=== PATIENT | female | born 1980 | race Two or more races ===

== ENCOUNTER 2023-06-24 15:17 | Outpatient (AMB) | payer OTHER, SELFPAY ==
--- NOTE | 2023-06-24 15:21 | MHC.OFFVIS ---
Intake Vital Signs 06/24/23 15:25 Height 5 ft 5 in Weight 177 lb BMI 29.5 BP 159/96 H Blood Pressure Location Rt brachial Position Sitting Pulse 114 H Intake Visit Reasons: ? keloid formation from tummy tuck Intake Note: This patient was self-referred for an assessment for question of keloid formation status post abdominoplasty. Patient c/o; reports ? keloid, reports tummy tuck was done in [facility] February. Leasing Professional Required: No Accompanied by: Self / Same As Patient Allergies No Known Allergies Allergy (Verified 06/24/23 15:25) Medication List - Last Reconciled 06/24/23 by Alonzo Correia MD cyclobenzaprine 10 mg PO TID PRN 30 days ibuprofen (Advil) 200 mg PO Q6H PRN levothyroxine mcg PO naproxen 500 mg PO BID PRN sumatriptan succinate mg PO topiramate 50 mg PO BID HPI ? keloid formation from tummy tuck HPI Details 42-year-old female referred for check of the abdominoplasty scar. She says that she had abdominoplasty in [place], [place] last February,. She says she did well postoperatively. She had a postop visit with her surgeon after 90 days she pointed out that she feels that the entire excision appears lumpy. She says she did not really have a chance to see her surgeon during that visit. She says that she feels the lumps mostly on the left side of the incision. She denies any drainage or swelling or redness. [facility] Surgical History (Updated 06/24/23 @ 15:44 by Alonzo Correia MD) Status post abdominoplasty Hx of cholecystectomy (~2006) History of tubal ligation (~2000) History of abdominoplasty (~03/15/23) Social History Alcohol intake: never Patient Tobacco Use Status: Never used Tobacco Review of Systems Const Denies chills and Denies fever(s) Card Denies chest pain, Denies dyspnea and Denies dyspnea on exertion Resp Denies cough, Denies dyspnea and Denies dyspnea on exertion GI Denies hematochezia and Denies change in bowel habits Denies hematuria Musc Denies back pain and Denies limited range of motion Neuro Denies focal weakness and Denies convulsions Psych Denies depression and Denies mood swings Physical Exam Const General: comfortable and no acute distress Orientation/consciousness: patient oriented x3 Neck Neck: Yes no lymphadenopathy Resp Auscultation: clear to auscultation bilaterally Cardio Rhythm: regular rhythm GI Other: Long transverse incision on the lower abdomen is well healed, subcutaneous layer feels ?lumpy? along this, mostly on the left side, no redness, no open wound, no tenderness Palpation (GI): Soft to palpation, nontender and no guarding Neuro General: patient oriented x3 Assessment & Plan Assessment & Plan (1) Status post abdominoplasty: Code(s): Z98.890 - Other specified postprocedural states Plan: She had undergone abdominoplasty in [place], [place] last February,. She came to the office to have the entire incision checked as she says that these feels ?lumpy?. The incision is well healed. There is no evidence of any infection or discharge. What she feels appears to be cicatrization in the subcutaneous layer. I explained to her that this is not an infection. I told her that she should allow the entire incision to remodel which may take at least 6 months. I explained to her that she does not require any urgent intervention. I did recommend to her to have the scar checked again within 6 months postop. Otherwise she is welcome to come to the office to have this evaluated as well. She is comfortable with the plan as above. Coding Level of Care Code New Pt Level 3 (12989) Diagnoses Status post abdominoplasty Z98.890
[2023-06-24 15:25] VITALS: BP 159/96; PULSE 114; BMI 29.5
== END 2023-06-24 15:53 | disposition home or self-care (01) ==
PROVIDERS: Visit Provider Surgery
DX: Z98.890 Other specified postprocedural states (principal)
CPT/HCPCS: 99203

== ENCOUNTER → 2023-06-24 15:17 | Outpatient (BNVA) | payer OTHER, SELFPAY | PROVIDERS: Visit Provider Surgery ==

== ENCOUNTER 2023-06-27 12:59 | Emergency (ER) | payer OTHER, SELFPAY | END 2023-06-27 14:45 | disposition left against medical advice (07) | PROVIDERS: Emergency Provider Emergency Medicine; PCP Family Medicine | DX: R51.9 Headache, unspecified (principal); I10 Essential (primary) hypertension; Z53.21 Procedure and treatment not carried out due to patient leaving prior to being seen by health care provider ==

== ENCOUNTER 2023-12-02 09:14 | Outpatient (AMB) | payer OTHER, SELFPAY ==
[2023-12-02 09:25] VITALS: BP 163/97; PULSE 97; BMI 29.1
--- NOTE | 2023-12-02 09:25 | A.OFFVIS_ITS ---
Vital Signs 12/02/23 09:25 Height 5 ft 5 in Weight 175 lb BMI 29.1 BP 163/97 H Blood Pressure Location Rt brachial Position Sitting Pulse 97 Intake Visit Reasons: New keloid of abdomen Intake Note: Patient known to Dr. Correia. Requested another surgeon as appointment kept getting rescheduled. She is here today with new concern of Keloid on abd. Keloid noticed 3m after abdominoplasty February of 2023. Patient c/o: pain that started on keloid 1.5m. Developing little keloid nest to it. Spring Bender Required: No Accompanied by: Self / Same As Patient Allergies No Known Allergies Allergy (Verified 12/02/23 09:27) HPI Comments Details: Patient is status post abdominal plasty approximate months ago. She presents with an enlarging incisional soft mass in the left lower abdomen. She was evaluated by another surgeon and now presents here for 2nd opinion. She would like to have this excised because it is becoming more symptomatic. She denies any GI issues or complaints. Chart was reviewed patient evaluate; patient has never had before [facility] Surgical History Status post abdominoplasty Hx of cholecystectomy (~2006) History of tubal ligation (~2000) History of abdominoplasty (~03/15/23) Social History Alcohol intake: never Patient Tobacco Use Status: Never used Tobacco Physical Exam Vital Signs: Last Vital Signs Pulse 97 12/02/23 09:25 BP 163/97 H 12/02/23 09:25 BMI result Body Mass Index 29.1 Chest Other: Chest breath sounds bilaterally, HS 1 in 2 GI Other: Patient was examined both supine and standing with Valsalva. She abdominal plasty scar. Abdomen otherwise soft and benign, modestly corpulent. Patient has a proximally 3 x 2 cm deeply situated incisional mass just to the left of midline. No hernias appreciated in the incision or in the groins. Assessment & Plan Assessment & Plan (1) Abdominal wall mass: Code(s): R22.2 - Localized swelling, mass and lump, trunk Category: Surgical Plan I discussed with the patient therapeutic options which are to continue conservative therapy/observation or for excision. She would like to proceed with the bladder. She feels that this is becoming more symptomatic and enlarging and would like to have it removed. Risks, benefits, alternatives of the wide local excision of abdominal wall mass were reviewed with the patient and included but not limited to bleeding, infection, recurrence, numbness, pain, scarring the patient wishes to proceed. All questions answered. Arrangements were made for this. Coding Level of Care Code New Pt Level 5 (19107) Diagnoses Abdominal wall mass R22.2
== END 2023-12-02 09:38 | disposition home or self-care (01) ==
PROVIDERS: PCP Family Medicine; Visit Provider Surgery
DX: R22.2 Localized swelling, mass and lump, trunk (principal)
CPT/HCPCS: 99204

== ENCOUNTER → 2023-12-02 09:14 | Outpatient (BNVA) | payer OTHER, SELFPAY | PROVIDERS: PCP Family Medicine; Visit Provider Surgery ==

== ENCOUNTER 2023-12-26 12:03 | Day surgery (SDC) | payer OTHER, SELFPAY ==
[2023-12-24 10:34] VITALS: BMI 29.1
--- NOTE | 2023-12-25 11:15 | MHC.SHP ---
Pre-Procedural Eval Section A - 24 Hr Update-Section A only Date of Service: 12/25/23 The patient is an INPATIENT: No Changes since office visit: No Cold of Flu in the past 2 weeks, No New Medical Problems, No Changes in Medication and No Patient answered all questions Section B - Complete if H&P > 30 days Chief Complaint: Localized swelling, mass and lump, trunk Allergies: Allergies Allergy/AdvReac Type Severity Reaction Status Date / Time No Known Allergies Allergy Verified 12/02/23 09:27 Plan I have reviewed the history and physical and performed a pertinent physical examination on my patient. No changes have occurred unless specified. Time Spent With Patient Time: Total time managing care of this patient today ____ minutes.
[2023-12-26] VITALS (7 sets, daily range): BP systolic 117–143; BP diastolic 80–95; PULSE 85–97; RESP 14–18; TEMP 36.1–36.6; O2SAT 95–98; BMI 29.0
[2023-12-26] MEDS: Lactated Ringers 1,000 ML 100 ML IVCONT (12:26)
--- NOTE | 2023-12-26 12:30 | HO.ANESPROP2 ---
Documented by User: Tejal Pereyra NP 12/24/23 15:26 HPI - Anesthesia Eval Consult details Narrative: 43yo F for Left Wide Local Excision Mass left abdominal wall mass PMFSH Active Problems Active Problems: All Active Problems Abdominal wall mass (Acute) Spasm of muscle of lower back (Acute) Status post abdominoplasty (Acute) Past Medical History Medical History (Updated 12/24/23 @ 10:38 by Clarissa Rivera RN) Migraine headache Hypothyroid Surgical History Surgical History (Updated 12/02/23 @ 09:38 by Emanuel Willams MD) Status post abdominoplasty Hx of cholecystectomy (~2006) History of tubal ligation (~2000) History of abdominoplasty (~03/15/23) Social History Social History Alcohol intake: never Patient Tobacco Use Status: Never used Tobacco Are you DNR?: No Advance Directives: No Advance Directives Information Provided: Yes Nutrition Risks: No Nutritional Risk Meds Allergies Allergy/AdvReac Type Severity Reaction Status Date / Time No Known Allergies Allergy Verified 12/02/23 09:27 Home Medications ?Medication ?Instructions ?Recorded ?Confirmed ?Last Taken ?Type ibuprofen 200 mg tablet (Advil) 200 mg PO Q6H PRN Pain 02/12/22 12/24/23 Unknown History naproxen 500 mg tablet 500 mg PO BID PRN pain 02/12/22 12/24/23 Unknown History levothyroxine 200 mcg tablet 200 mcg PO DAILY 06/24/23 12/24/23 Unknown History sumatriptan succinate 50 mg tablet 50 mg PO DAILY PRN Migraine 06/24/23 12/24/23 Unknown History Headache topiramate 50 mg tablet 50 mg PO BID 06/24/23 12/24/23 Unknown History Exam Height,Weight and Vital Signs: Height 5 ft 5 in Weight 79.379 kg Assessment and Plan Assessment Anesthesia Assessment: Chart Reviewed Documented by User: Paige Jackson DO 12/26/23 12:34 [facility] Past Medical History Medical History (Updated 12/24/23 @ 10:38 by Clarissa Rivera RN) Migraine headache Hypothyroid Family History Family history of problems with anesthesia: No Surgical History Surgical History (Updated 12/02/23 @ 09:38 by Emanuel Willams MD) Status post abdominoplasty Hx of cholecystectomy (~2006) History of tubal ligation (~2000) History of abdominoplasty (~03/15/23) History of Problems with Anesthesia: No Social History Social History Alcohol intake: never Patient Tobacco Use Status: Never used Tobacco Are you DNR?: No Advance Directives: No Advance Directives Information Provided: Yes Nutrition Risks: No Nutritional Risk Meds Allergies Allergy/AdvReac Type Severity Reaction Status Date / Time No Known Allergies Allergy Verified 12/02/23 09:27 Home Medications ?Medication ?Instructions ?Recorded ?Confirmed ?Last Taken ?Type ibuprofen 200 mg tablet (Advil) 200 mg PO Q6H PRN Pain 02/12/22 12/24/23 Unknown History naproxen 500 mg tablet 500 mg PO BID PRN pain 02/12/22 12/24/23 Unknown History levothyroxine 200 mcg tablet 200 mcg PO DAILY 06/24/23 12/24/23 Unknown History sumatriptan succinate 50 mg tablet 50 mg PO DAILY PRN Migraine 06/24/23 12/24/23 Unknown History Headache topiramate 50 mg tablet 50 mg PO BID 06/24/23 12/24/23 Unknown History Exam Exam Date and Time: December 26, 2023 1230 Height,Weight and Vital Signs: Height 5 ft 5 in Weight 79.379 kg Vital Signs Temperature 97.9 F 12/26/23 12:28 Pulse Rate 97 12/26/23 12:28 Respiratory Rate 18 12/26/23 12:28 Blood Pressure 143/90 H 12/26/23 12:28 Pulse Oximetry 98 12/26/23 12:28 Oxygen Delivery Method Room Air 12/26/23 12:28 Temperature 97.9 F 12/26/23 12:28 Pulse Rate 97 12/26/23 12:28 Respiratory Rate 18 12/26/23 12:28 Blood Pressure 143/90 H 12/26/23 12:28 Pulse Oximetry 98 12/26/23 12:28 Oxygen Delivery Method Room Air 12/26/23 12:28 Airway Mallampati Class: II TM Dist: >3cm Neck ROM: Full Loose/Missing/Broken Teeth: No (patient denies any loose or broken teeth) Heart: S1S2 Lungs: CTAB Assessment and Plan Assessment Anesthesia Assessment: Anesthesia Plan Discussed and Chart Reviewed Final Anesthetic Review Family History of Problems with Anesthesia: No History of Problems with Anesthesia: No NPO: Yes ASA Class: II Final Preanesthetic Review: No Changes in Pt Med Stat, Meds/Allgs Chart Reviewed, Consent Obtained/Reviewed and Anes Risks/Benef Reviewed Patient Risk: Low Procedure Risk: Low Anesthetic Plan Anesthetic Plan: MAC: Disposition: Standard PACU
--- NOTE | 2023-12-26 13:27 | P.OP_ITS ---
Operative Note Operative Note Date of Service: 12/26/23 Narrative: Preoperative diagnosis: [] Left lower quadrant abdominal wall soft tissue mass Postop diagnosis: [] The same Procedure [] wide local excision soft tissue mass left lower quadrant abdominal wall Surgeon: [] Imer Associate Software Engineer: [] Type of Anesthesia: [] MAC Indicat on for surgery: [] Patient is status post abdominoplasty in the past. She presents with a persistent soft tissue mass in left lower quadrant just lizabeth eath her abdominoplasty scar which is increasing in size and becoming more symptomatic. Final specimen size measuring 7 x 4 cm. Specimen sent to pathology. Findings: [] Patient brought to the operating room, placed on operative table in supine position, after adequate level of MAC anesthesia was induced, the patient's abdomen was prepped and draped in usual sterile fashion. Using an incision over the mass in question from the patient's prior abdominoplasty, this carried down through skin, subcutaneous tissue, where a soft tissue mass as well as a lipoma were circumferentially excised using Bovie. Final dimensions as noted above. Wound was irrigated, secured hemostasis, and closed using interrupted inverted dermal 3-0 Vicryl sutures followed by Steri-Strips and sterile dressings. Wound was infiltrated at the beginning at the end with 0.5% Marcaine/1% lidocaine. Sponge, needle, and instrument counts reported correct. Patient tolerated the procedure well and emerged anesthesia stable condition. EBL minimal
[2023-12-26] MEDS: fentaNYL citrate/PF 100 MCG/2 ML VIAL 50 MCG IVPUSH (13:34)
[2023-12-26] MEDS: oxyCODONE HCl Immed Release 5 MG TABLET PO (13:50)
== END 2023-12-26 14:34 | disposition home or self-care (01) ==
PROVIDERS: PCP Family Medicine; Visit Provider Surgery
PROC: (CPT 22903; principal; 2023-12-26 14:10)
DX: R22.2 Localized swelling, mass and lump, trunk (principal)
CPT/HCPCS: 22903; 88307; J0690; J2250; J2704; J2795; J3010

== ENCOUNTER → 2023-12-26 12:03 | Outpatient (BNV) | payer OTHER, SELFPAY | PROVIDERS: PCP Family Medicine; Visit Provider Surgery | DX: R22.2 Localized swelling, mass and lump, trunk (principal) | CPT/HCPCS: 22903 ==

== ENCOUNTER 2024-01-06 08:47 | Outpatient (AMB) | payer OTHER, SELFPAY ==
--- NOTE | 2024-01-06 08:47 | A.OFFVIS_ITS ---
Intake Visit Reasons: s/p excision keloid of abdomen Intake Note: This patient presents for a post-op follow-up status post excision keloid of abdomine, Allergies No Known Allergies Allergy (Verified 12/26/23 12:46) HPI Comments Details: Patient presents for follow-up. She has no wound issues or complaints. Pathology is benign. [facility] Medical History Migraine headache Hypothyroid Surgical History (Updated 01/06/24 @ 08:53 by Emanuel Willams MD) Status post abdominoplasty Hx of cholecystectomy (~2006) History of tubal ligation (~2000) History of abdominoplasty (~03/15/23) Social History Alcohol intake: never Comment: count correct Patient Tobacco Use Status: Never used Tobacco Physical Exam GI Other: Abdomen is soft. Wound clean dry and intact healing well Assessment & Plan Assessment & Plan (1) Postop check: Code(s): Z09 - Encounter for follow-up examination after completed treatment for conditions other than malignant neoplasm Category: Surgical Plan Patient has been given local instructions, and will otherwise follow-up p.r.n.. All questions answered. Coding Level of Care Code Global (42130) Diagnoses Postop check Z09
== END 2024-01-06 08:55 | disposition home or self-care (01) ==
PROVIDERS: PCP Family Medicine; Visit Provider Surgery
DX: Z09 Encounter for follow-up examination after completed treatment for conditions other than malignant neoplasm (principal)
CPT/HCPCS: 99024

== ENCOUNTER → 2024-01-06 08:47 | Outpatient (BNVA) | payer OTHER, SELFPAY | PROVIDERS: PCP Family Medicine; Visit Provider Surgery ==